=== PATIENT | female | born 1995 | race Caucasian/White ===

== ENCOUNTER 2016-11-12 04:08 | Emergency (ER) | payer BC ==
[~2016-11-12] VITALS: Ht 165.1 cm; Wt 84.1 kg
[~2016-11-12 04:08] MED LIST: LORTAB 5/500 501 TAB PO; NO HOME MEDICATIONS
[2016-11-12 04:11] VITALS: TEMP 98.1
[2016-11-12] MEDS ORDERED: DEPO-PROVE150 MG/1 M IM (04:17)
[2016-11-12] MEDS ORDERED: WELLBUTRIN SR150 M1 PO (04:17)
[2016-11-12 04:50] LABS: PH 5 (5-8); URINE APPEARANCE Cloudy; URINE BACTERIA Rare /hpf; URINE BILIRUBIN Negative (NEGATIVE); URINE BLOOD 3+ (NEGATIVE); URINE COLOR Yellow; URINE GLUCOSE Negative (NEGATIVE); URINE KETONE Negative (NEGATIVE); URINE UROBILINOGEN Negative (NEGATIVE)
[2016-11-12 04:54] LABS: AMPHETAMINE URINE NEGATIVE; BARBITURATES URINE NEGATIVE; BENZODIAZEPINES URINE NEGATIVE; BUPRENORPHINE URINE NEGATIVE; METHADONE URINE NEGATIVE; OPIATES URINE NEGATIVE; OXYCODONE URINE NEGATIVE; PHENCYCLIDINE URINE NEGATIVE; PROPOXYPHENE URINE NEGATIVE; THC CANNABINOIDS URINE NEGATIVE
[2016-11-12 05:04] LABS: BASO # 0.1 (0.0-0.2); BASO % 1.1 % (0.0-2.0); EOS # 0.2 (0.0-0.7); EOS % 2.4 % (0-4.0); GRAN # 5.2 (1.4-6.5); GRAN % 59.7 % (42.2-75.2); HEMOGLOBIN 15.2 g/dl (12.5-16.0); LYMPH # 2.9 (1.2-3.4); LYMPH % 32.6 % (20.0-51.0); MEAN CELL VOLUME 88 fl (80.0-100.0); MEAN CORPUSCULAR HEMOGLOBIN 30 pg (27.0-31.0); MEAN CORPUSCULAR HGB CONC 35 g/dl (33.0-37.0); MEAN PLATELET VOLUME 9.6 fl (7.4-10.4); MONO # 0.4 (0.1-0.6); MONO % 4.1 % (1.7-9.3); PLATELET COUNT 312 K/mm3 (130-400); RED BLOOD COUNT 5.03 M/mm3 (4.10-5.30); REDCELL DISTRIBUTION WIDTH-CV 11.8 % (11.5-14.5); WHITE BLOOD COUNT 8.7 K/mm3 (4.8-10.8)
[2016-11-12 05:11] LABS: ADJUSTED CALCIUM 8.8 mg/dL (8.4-10.2); ALANINE AMINOTRANSFERASE 23 U/L (9-52); ALBUMIN 4.1 gm/dL (3.5-5.0); ALKALINE PHOSPHATASE 40 U/L (50-136); ANION GAP 15 mmol/L (7-16); BILIRUBIN,TOTAL 0.7 mg/dL (0.0-1.0); BLOOD UREA NITROGEN 7 mg/dL (7-17); CALCIUM 8.9 mg/dL (8.4-10.2); CARBON DIOXIDE 19 mmol/L (22-30); CHLORIDE 113 mmol/L (98-107); GLUCOSE 93 mg/dL (74-106); POTASSIUM 3.6 mmol/L (3.4-5.0); SODIUM 146 mmol/L (137-145); TOTAL PROTEIN 6.9 gm/dL (6.4-8.2)
[2016-11-12 05:52] LABS: ACETAMINOPHEN < 10 ug/mL (10-30); SALICYLATE < 1.0 mg/dL
[2016-11-12 10:13] VITALS: BP 120/74; PULSE 104
== END 2016-11-12 10:13 | disposition home or self-care (01) ==
LOC: COL.ER 04:08
PROVIDERS: Emergency Medicine
DX: R51 Headache (principal); F10.120 Alcohol abuse with intoxication, uncomplicated; Y90.6 Blood alcohol level of 120-199 mg/100 ml; F30.9 Manic episode, unspecified; G47.00 Insomnia, unspecified
CPT/HCPCS: J1885; J2060; J2270; J2405; J7030